=== PATIENT | male | born 1970 ===

== ENCOUNTER 2022-01-01 15:17 | Emergency (ER) | payer SELFPAY ==
[~2022-01-01] VITALS: Ht 170.2 cm; Wt 90.7 kg
[2022-01-01 15:25] VITALS: BP 118/74
[2022-01-01 16:34] LABS: BASOPHILS % 0.7 % (0.0-2.0); EOSINOPHILS % 0.4 % (0.0-5.0); HEMATOCRIT. 38.8 % (42.0-52.0); HEMOGLOBIN. 13.3 g/dL (14.0-18.0); LYMPHOCYTES % 7.6 % (20.0-50.0); MEAN CORPUSCULAR HEMOGLOBIN 31.2 pg (28.0-32.0); MEAN CORPUSCULAR VOLUME 91.3 fL (80.0-94.0); MEAN PLATELET VOLUME 6.3 fl (7.4-10.4); MONOCYTES % 2.9 % (2.0-8.0); NEUTROPHILS % 88.4 % (40.0-76.0); PLATELET 775 x1000/uL (130-400); RED BLOOD CELL COUNT 4.25 mill/uL (4.7-6.1); RED CELL DISTRIBUTION WIDTH 18.7 % (11.6-14.6)
[2022-01-01 16:40] LABS: CHLORIDE 111 mEq/L (98-107)
[2022-01-01 16:59] LABS: ETHANOL BLOOD 359 mg/dL
[2022-01-01] MEDS ORDERED: CHLORDIAZEPOXIDE 25MG CAPSULE PO ONE (19:45)
== END 2022-01-02 01:06 | disposition home or self-care (01) ==
LOC: ER 15:17
DX: T51.0X1A Toxic effect of ethanol, accidental (unintentional), initial encounter (principal); E86.0 Dehydration; Y92.9 Unspecified place or not applicable
CPT/HCPCS: 36415; 80053; 80320; 85025; 99283; G0480